=== PATIENT | female | born 2000 | race Caucasian/White ===

== ENCOUNTER 2025-01-21 09:24 | Inpatient (IN) | payer BC, OTHER ==
[2025-01-21 09:50] LABS: #Basophils 0.13 10x3/uL (0.0-0.2); #Eosinophils 1.35 10x3/uL (0.0-0.7); #Monocytes 0.88 10x3/uL (0.11-0.59); #Neutrophils 6.89 10x3/uL (1.40-6.50); %Basophils 1.1 % (0.0-1.0); %Eosinophils 11.0 % (0.0-10.0); %Lymphocytes 24.2 % (21.0-51.0); %Monocytes 7.2 % (0.0-10.0); %Neutrophils 56.2 % (42.0-75.0); Hematocrit 45.3 % (36.0-47.0); Hemoglobin 14.3 g/dL (12.0-16.0); Mean Corpuscular Hemoglobin 26.8 pg (27.0-31.0); Mean Corpuscular Volume 84.8 fL (78.0-98.0); Platelet Count 390 10x3/uL (130-400); Red Blood Cell (RBC) Count 5.34 mill/uL (4.20-5.40); White Blood Cell (WBC) Count 12.25 10x3/uL (4.8-10.8)
[2025-01-21 09:58] LABS: INR-International Normal Ratio 1.0; PTT 26.9 sec (22.9-36.1); Prothrombin Time 12.9 sec (12.0-14.7)
[2025-01-21 09:59] LABS: ALT (SGPT) 13 U/L (Less than 34); AST (SGOT) 29 U/L (11-34); Albumin 4.1 g/dL (3.1-4.5); Alkaline Phosphatase 72 U/L (40-110); Anion Gap 16 mmol/L (10-20); BUN (Urea Nitrogen) 13 mg/dL (7.0-18.7); Bilirubin, Total 0.9 mg/dL (0.3-1.2); Calc. Creatinine Clearance 0 mL/min (70-130); Calcium 8.6 mg/dL (7.8-10.44); Carbon Dioxide 18 mmol/L (22-29); Chloride 108 mmol/L (98-107); Globulin 3.4 g/dL (2.4-3.5); Glucose 88 mg/dL (70-105); Potassium 4.2 mmol/L (3.5-5.1); Sodium 138 mmol/L (136-145)
[2025-01-21 10:37] LABS: BHCG - Serum Negative (NEGATIVE); Pregs Control Background? CLEAR/WHITE (CLR/WHITE); Pregs Control Bar Appear? YES (CONTROL BAR)
[2025-01-21] MEDS ORDERED: Iopamidol-370 76% 500 ML MDV (1 ML CHARGE) ONE (12:55)
[2025-01-21] MEDS ORDERED: Melatonin 3 MG TAB PO PRN (15:09)
[2025-01-21] MEDS ORDERED: Senokot S 8.6-50 MG TAB PO PRN (15:09)
[2025-01-21 18:35] VITALS: BMI 31.7
[2025-01-21] MEDS: Acetaminophen 325 MG TAB PO PRN (21:23)
[2025-01-22 04:23] LABS: #Basophils 0.07 10x3/uL (0.0-0.2); #Eosinophils 1.02 10x3/uL (0.0-0.7); #Monocytes 0.68 10x3/uL (0.11-0.59); #Neutrophils 4.25 10x3/uL (1.40-6.50); %Basophils 0.8 % (0.0-1.0); %Eosinophils 12.4 % (0.0-10.0); %Lymphocytes 26.8 % (21.0-51.0); %Monocytes 8.2 % (0.0-10.0); %Neutrophils 51.6 % (42.0-75.0); Hematocrit 37.4 % (36.0-47.0); Hemoglobin 12.0 g/dL (12.0-16.0); Mean Corpuscular Hemoglobin 27.5 pg (27.0-31.0); Mean Corpuscular Volume 85.8 fL (78.0-98.0); Platelet Count 340 10x3/uL (130-400); Red Blood Cell (RBC) Count 4.36 mill/uL (4.20-5.40); White Blood Cell (WBC) Count 8.25 10x3/uL (4.8-10.8)
[2025-01-22 04:44] LABS: Anion Gap 13 mmol/L (10-20); BUN (Urea Nitrogen) 10 mg/dL (7.0-18.7); Calc. Creatinine Clearance 152 mL/min (70-130); Calcium 8.1 mg/dL (7.8-10.44); Carbon Dioxide 22 mmol/L (22-29); Cardiac Risk 3.0 (Less than 4.5); Chloride 108 mmol/L (98-107); Cholesterol 141 mg/dl (< 200 Desired); Glucose 88 mg/dL (70-105); HDL Cholesterol 47 mg/dL (>60 Neg Risk); LDL Cholesterol, Calculated 85 mg/dL; Potassium 3.6 mmol/L (3.5-5.1); Sodium 139 mmol/L (136-145); Triglycerides 47 mg/dL (Less than 150)
[2025-01-22] MEDS: Ondansetron PF 4 MG/2 ML Vial IVP PRN (04:46)
[2025-01-22] MEDS: Aspirin 81 mg Enteric Coated Tablet PO SCH (09:44)
[2025-01-22 12:00] LABS: Vitamin B12 393.0 pg/mL (211-911)
[2025-01-22 12:11] LABS: Syphilis Antibody Index 0.14 S/CO (<1.00 Non-Reactive)
[2025-01-22 12:25] LABS: Bacteria/HPF None Seen HPF (None Seen); Glucose, Urine (Dipstick) Normal (Negative); Leukocyte Negative Leu/uL (Negative); Protein, Urine (Dipstick) Negative (Neg-Trace); RBC/HPF 0-3 HPF (0-3); Specific Gravity, Urine 1.009 (1.002-1.036); WBC/HPF 0-3 HPF (0-3)
[2025-01-22 13:17] LABS: Vitamin D, 25 Hydroxy 26.5 ng/ml (> 30.0)
[2025-01-22] MEDS: Gabapentin 100 MG CAP PO SCH ×2 (14:15→20:39)
[2025-01-22] MEDS ORDERED: Gabapentin 100 MG CAP PO SCH (21:00)
[2025-01-23 04:03] LABS: #Basophils 0.03 10x3/uL (0.0-0.2); #Eosinophils 0.41 10x3/uL (0.0-0.7); #Monocytes 0.60 10x3/uL (0.11-0.59); #Neutrophils 5.00 10x3/uL (1.40-6.50); %Basophils 0.4 % (0.0-1.0); %Eosinophils 5.1 % (0.0-10.0); %Lymphocytes 23.8 % (21.0-51.0); %Monocytes 7.5 % (0.0-10.0); %Neutrophils 62.8 % (42.0-75.0); Hematocrit 41.5 % (36.0-47.0); Hemoglobin 13.2 g/dL (12.0-16.0); Mean Corpuscular Hemoglobin 27.2 pg (27.0-31.0); Mean Corpuscular Volume 85.4 fL (78.0-98.0); Platelet Count 389 10x3/uL (130-400); Red Blood Cell (RBC) Count 4.86 mill/uL (4.20-5.40); White Blood Cell (WBC) Count 7.97 10x3/uL (4.8-10.8)
[2025-01-23 04:38] LABS: Anion Gap 16 mmol/L (10-20); BUN (Urea Nitrogen) 10 mg/dL (7.0-18.7); Calc. Creatinine Clearance 129 mL/min (70-130); Calcium 8.9 mg/dL (7.8-10.44); Carbon Dioxide 21 mmol/L (22-29); Chloride 107 mmol/L (98-107); Glucose 98 mg/dL (70-105); Potassium 3.7 mmol/L (3.5-5.1); Sodium 140 mmol/L (136-145)
[2025-01-23] MEDS ORDERED: Enoxaparin 40 MG (0.4 mL) SYRINGE SC SCH (09:00)
[2025-01-23] MEDS ORDERED: Sodium Bicarbonate 2.5 MEQ/5 ML SDV ONE (09:00)
[2025-01-23 11:41] LABS: CSF Source CSF
[2025-01-23 11:55] VITALS: BP 109/71; TEMP 98.4
[2025-01-23 12:25] LABS: ANA Symphony (Qualitative) Negative (Negative); ANA Symphony (Quantitative) 0.2 Ratio (< 0.7 Negative); dsDNA IgG Antibody 0.9 IU/mL (<10 Negative)
== END 2025-01-23 15:45 | disposition home or self-care (01) | DRG 556 ==
LOC: ERS 09:24 → ERHOLD 12:30 → 2SE 18:25
PROVIDERS: ADMIT Family Medicine; ATTEND Internal Medicine
DX: M79.10 Myalgia, unspecified site (principal); R29.898 Other symptoms and signs involving the musculoskeletal system; E55.9 Vitamin D deficiency, unspecified; R51.9 Headache, unspecified; R20.2 Paresthesia of skin; E03.4 Atrophy of thyroid (acquired); M47.899 Other spondylosis, site unspecified; R79.89 Other specified abnormal findings of blood chemistry; F90.9 Attention-deficit hyperactivity disorder, unspecified type; H53.8 Other visual disturbances; R30.0 Dysuria; R74.8 Abnormal levels of other serum enzymes; Z90.49 Acquired absence of other specified parts of digestive tract; Z98.890 Other specified postprocedural states
CPT/HCPCS: 36415; 36416; 62270; 70450; 70496; 70498; 70551; 70552; 71045; 72148; 76376; 80048; 80053; 80061; 81001; 82040; 82042; 82085; 82306; 82550; 82607; 82784; 82945; 83916; 84157; 84425; 84443; 84484; 84703; 85025; 85610; 85730; 86038; 86141; 86225; 86780; 87428; 87899; 89051; 93005; 94760; J2405; Q9967